=== PATIENT | female | born 1935 | race Caucasian/White ===

== ENCOUNTER 2017-03-22 11:49 | Inpatient (IN) ==
[2017-03-22] MEDS ORDERED: SODIUM CHLORIDE 500 ML IV STA (12:14)
[2017-03-22] MEDS ORDERED: ZOFRAN 4 MG/2 ML IVP PRN (12:18)
--- NOTE | 2017-03-22 12:26 | ED.PDOC ---
General ED Provider: Dr. MAN BELL Chief Complaint: Respiratory Complaint Stated Complaint: Shortness of breath;Was recently discharged from [facility] after treatment for CHF. Came home on Sunday and has felt bad ever since then, becoming increasingly short of breath. Was referred to hospital by her PCP for rapid HR (afib). Discharge meds reviewed. Time Seen by Physician: 12:15 Mode of Arrival: Wheelchair Information Source: Patient, Family Exam Limitations: Clinical condition, Dementia Primary Care Provider: SHARMIN DÍAZ Nursing and Triage Documentation Reviewed and Agree: Yes Reviewed sepsis parameters & appropriate labs ordered?: Yes System Inflammatory Response Syndrome: Pulse >90 BPM, Resp >20/Minute Sepsis Protocol: For patient's 13 years and over: Temp is 96.8 and below OR 101 and greater Pulse >90 BPM Resp >20/minute Acutely Altered Mental Status Are patient's symptoms suggestive of a new infection, such as: -Pneumonia -Skin, Soft Tissue -Endocarditis -UTI -Bone, Joint Infection -Implantable Device -Acute Abdominal Infection -Wound Infection -Meningitis -Blood Stream Catheter Infection -Unknown System Inflammatory Response Syndrome: Not Applicable Respiratory Complaint Exam - Shortness of Air Complaint/Exam Symptoms Are: Worse Timing: Constant Initial Severity: Moderate Current Severity: Moderate Character: Reports: Dyspnea at rest, Dyspnea on exertion, Orthopnea Aggravating: Reports: Movement, Recumbent position Alleviating: Reports: Oxygen Associated Signs and Symptoms: Reports: Cough, Wheezing, Rapid breathing, Labored breathing Related History: Reports: Similar episode History of Healthcare-Acquired Pneumonia: No Pulmonary Embolism Risk Factors: Reports: Bedrest Pseudomonas Risk Factors: Reports: None Tuberculosis Risk Factors: Reports: None Home Oxygen Use: No Recent Stress Test: No Respiratory Distress: Mild Stridor Present: No Tracheal Deviation: No Subcutaneous Emphysema: No Accessory Muscle Use: No Diminished Breath Sounds: Yes Prolonged Expiratory Phase: Yes Unable to Speak Full Sentences: Yes Fatigue: Yes Leg Swelling: No Kevin's Sign Present: No Grunting Respirations: Yes Kussmaul Respirations: No Differential Diagnoses: CHF, Pulmonary Edema, Pneumonia (R/O [facility] care associated Pneumonia) Review of Systems - Review Of Systems Constitutional: Reports: Weakness, Loss of appetite Eyes: Reports: No symptoms Ears, Nose, Mouth, Throat: Reports: No symptoms Respiratory: Reports: Short of air Cardiac: Reports: Edema, Irregular heart rate, Palpitations GI: Reports: No symptoms, Rectal bleeding (hemorrhoid) : Reports: Other (recent burning and tx for uti) Musculoskeletal: Reports: No symptoms Skin: Reports: Other (palorous) Neurological: Reports: Cognitive dysfunction Endocrine: Reports: No symptoms Hematologic/Lymphatic: Reports: No symptoms All Other Systems: Reviewed and Negative Past Medical History - Past Medical History Endocrine: Reports: None Cardiovascular: Reports: CHF, A-Fib Respiratory: Reports: Unknown Hematological: Reports: Anemia Gastrointestinal: Reports: Other (Hemorrhoidal related rectal bleeding) Genitourinary: Reports: UTI Neuro/Psych: Reports: Dementia Musculoskeletal: Reports: None Cancer: Reports: None Last Menstrual Period: unknown - Surgical History General Surgical History: Reports: None - Family History Family History: Reports: Hypertension - Social History Smoking Status: Never smoker Hx Substance Use: No Alcohol Screening: None Physical Exam - Physical Exam Appearance: Ill-appearing, Thin Ill-appearing: Moderate Pain Distress: None Eyes: LEA, EOMI, Conjunctiva clear, Conjunctiva inflammed ENT: Ears normal Neck: Supple Respiratory: Breath sounds equal, Breath sounds diminished, Crackles Cardiovascular: Irregular rhythm GI/: Soft, Nontender, No masses Musculoskeletal: Normal strength, ROM intact, No edema, No calf tenderness Skin: Warm, Dry, Pale Neurological: Sensation intact, Motor intact, Reflexes intact, Alert, Disoriented Psychiatric: Affect appropriate, Mood appropriate Critical Care Note - Critical Care Note Total Time (mins): 1 Course - Course Hematology/Chemistry: 03/27/17 04:50 03/27/17 04:50 Orders, Labs, Meds: Lab Review 03/22/17 03/22/17 03/22/17 12:00 12:40 12:40 WBC 6.27 RBC 4.85 Hgb 12.2 Hct 40.0 MCV 82.5 MCH 25.2 L MCHC 30.5 L RDW Coeff of Ramiro 22.8 H Plt Count 224 Immature Gran % (Auto) 0.3 Neut % (Auto) 77.5 Lymph % (Auto) 9.1 L [place] % (Auto) 12.6 H Eos % (Auto) 0.0 Baso % (Auto) 0.5 Immature Gran # (Auto) 0.0 Neut # 4.9 Lymph # 0.6 [place] # 0.8 Eos # 0.0 Baso # 0.0 Puncture Site R rad O2 Saturation 90.0 L ABG pH 7.519 H* ABG pCO2 38.9 ABG pO2 52.0 L* ABG HCO3 31.7 H ABG Total CO2 33 H ABG Base Excess 9 H Yung Test + FiO2 % 21.0 Sodium 142 Potassium 3.7 Chloride 99 Carbon Dioxide 32 H Anion Gap 14.7 BUN 22 H Creatinine 0.91 Estimated GFR (MDRD) 59.00 BUN/Creatinine Ratio 24.17 Glucose 110 Lactic Acid Calcium 9.5 Total Bilirubin 1.3 H AST 20 ALT 25 Alkaline Phosphatase 72 Troponin I B-Natriuretic Peptide Total Protein 6.6 Albumin 3.4 Globulin 3.2 Albumin/Globulin Ratio 1.06 Procalcitonin Urine Color Urine Clarity Urine pH Ur Specific [place] Urine Protein Urine Glucose (UA) Urine Ketones Urine Blood Urine Nitrite Urine Bilirubin Urine Urobilinogen Ur Leukocyte Esterase Urine Microscopic WBC Ur Squamous Epith Cells Hyaline Casts Urine Mucus Blood Type Antibody Screen 03/22/17 03/22/17 03/22/17 12:40 12:40 12:40 WBC RBC Hgb Hct MCV MCH MCHC RDW Coeff of Ramiro Plt Count Immature Gran % (Auto) Neut % (Auto) Lymph % (Auto) [place] % (Auto) Eos % (Auto) Baso % (Auto) Immature Gran # (Auto) Neut # Lymph # [place] # Eos # Baso # Puncture Site O2 Saturation ABG pH ABG pCO2 ABG pO2 ABG HCO3 ABG Total CO2 ABG Base Excess Yung Test FiO2 % Sodium Potassium Chloride Carbon Dioxide Anion Gap BUN Creatinine Estimated GFR (MDRD) BUN/Creatinine Ratio Glucose Lactic Acid 17.1 Calcium Total Bilirubin AST ALT Alkaline Phosphatase Troponin I 0.0680 B-Natriuretic Peptide Total Protein Albumin Globulin Albumin/Globulin Ratio Procalcitonin < 0.05 Urine Color Urine Clarity Urine pH Ur Specific [place] Urine Protein Urine Glucose (UA) Urine Ketones Urine Blood Urine Nitrite Urine Bilirubin Urine Urobilinogen Ur Leukocyte Esterase Urine Microscopic WBC Ur Squamous Epith Cells Hyaline Casts Urine Mucus Blood Type Antibody Screen 03/22/17 03/22/17 03/22/17 13:10 13:10 15:50 WBC RBC Hgb Hct MCV MCH MCHC RDW Coeff of Ramiro Plt Count Immature Gran % (Auto) Neut % (Auto) Lymph % (Auto) [place] % (Auto) Eos % (Auto) Baso % (Auto) Immature Gran # (Auto) Neut # Lymph # [place] # Eos # Baso # Puncture Site O2 Saturation ABG pH ABG pCO2 ABG pO2 ABG HCO3 ABG Total CO2 ABG Base Excess Yung Test FiO2 % Sodium Potassium Chloride Carbon Dioxide Anion Gap BUN Creatinine Estimated GFR (MDRD) BUN/Creatinine Ratio Glucose Lactic Acid Calcium Total Bilirubin AST ALT Alkaline Phosphatase Troponin I B-Natriuretic Peptide 2570 H Total Protein Albumin Globulin Albumin/Globulin Ratio Procalcitonin Urine Color Yellow Urine Clarity Clear Urine pH 6.0 Ur Specific [place] 1.025 Urine Protein 2+ Urine Glucose (UA) Negative Urine Ketones Trace Urine Blood Negative Urine Nitrite Negative Urine Bilirubin 1+ Urine Urobilinogen 1.0 Ur Leukocyte Esterase Negative Urine Microscopic WBC 0-2 Ur Squamous Epith Cells 2-5 Hyaline Casts 0-2 Urine Mucus 1+ Blood Type A NEGATIVE Antibody Screen Negative Orders Category Date Time Status ADMIT PATIENT INPATIENT .TO [facility] [place] (MONITORED BED) ADMISSION 03/22/17 16: 59 Active ABG DRAW REQUEST Stat CARDIO 03/22/17 12:27 Completed EKG-(ED ONLY) Stat CARDIO 03/22/17 12:14 Completed TELEMETRY MONITORING TELE CARE 03/22/17 17:04 Inactive OXYGEN [ED APPLY O2] .ONCE EMERGENCY 03/22/17 12:17 Active ABG Stat LAB 03/22/17 12:00 Completed BLOOD CULTURE (ED ONLY) Stat LAB 03/22/17 13:10 Completed BNP [B-TYPE NATRIURETIC PEPTIDE] Stat LAB 03/22/17 13:10 Completed CBC W/ AUTO DIFF Stat LAB 03/22/17 12:40 Completed CMP [COMPREHENSIVE METABOLIC PANEL] Stat LAB 03/22/17 12:40 Completed LACTIC ACID Stat LAB 03/22/17 12:40 Completed PROCALCITONIN Stat LAB 03/22/17 12:40 Completed TROPONIN I Stat LAB 03/22/17 12:40 Completed TYPE AND SCREEN Stat LAB 03/22/17 13:10 Completed UA [URINALYSIS C & S IF INDICATED] Stat LAB 03/22/17 15:50 Completed Dexamethasone 4 mg/ml Inj [Decadron 4 mg/ml Sdv] MEDS 03/22/17 17:13 Discontinued 4 mg IM ONCE STA Digoxin Inj [Lanoxin] MEDS 03/22/17 17:06 Discontinued 250 mcg IVP ONCE STA Furosemide [Lasix] MEDS 03/22/17 17:05 Discontinued 20 mg IVP ONCE STA Ondansetron HCl/Pf [Zofran 4 mg/2 ml] MEDS 03/22/17 12:18 Discontinued 4 mg IVP Q6H PRN Sodium Chloride 0.9% [Sodium Chloride] 500 ml MEDS 03/22/17 12:14 Discontinued IV 80 mls/hr CHEST, 1V AP ONLY Stat RADS 03/22/17 12:14 Completed Medications Discontinued Medications Generic Name Dose Route Start Last Admin Trade Name Freq PRN Reason Stop Dose Admin Acetaminophen 650 mg 03/22/17 20:39 Tylenol PO Q4H PRN Headache Alprazolam 0.25 mg 03/22/17 21:00 03/26/17 21:12 Xanax PO 0.25 mg BEDTIME BECCA Administration Aspirin 81 mg 03/23/17 08:00 03/27/17 09:47 Aspirin Ec PO 81 mg DAILYWM BECCA Administration Atropine Sulfate 0.5 mg 03/22/17 20:39 Atropine Sulfate Pfs IVP ONCE PRN Symptomatic Bradycardia Calcium/Vitamin D 1 each 03/23/17 09:00 03/27/17 09:46 Calcium 500 + Vit D 200 Mg Tablet PO 1 each BID BECCA Administration Dexamethasone Sodium Phosphate 4 mg 03/22/17 17:13 03/22/17 17:38 Decadron 4 Mg/Ml Sdv IM 03/22/17 17:14 4 mg ONCE STA Administration Dexamethasone Sodium Phosphate 4 mg 03/23/17 09:00 03/23/17 09:40 Decadron 4 Mg/Ml Sdv IM 03/23/17 09:01 4 mg ONCE ONE Administration Digoxin 250 mcg 03/22/17 17:06 03/22/17 17:48 Lanoxin IVP 03/22/17 17:07 250 mcg ONCE STA Administration Furosemide 20 mg 03/22/17 17:05 03/22/17 17:35 Lasix IVP 03/22/17 17:06 20 mg ONCE STA Administration Furosemide 40 mg 03/23/17 09:00 Lasix Tab PO DAILY BECCA Furosemide 40 mg 03/23/17 06:30 03/27/17 05:46 Lasix Tab PO 40 mg QDAC BECCA Administration Gabapentin 300 mg 03/22/17 21:00 03/26/17 21:12 Neurontin PO 300 mg BEDTIME BECCA Administration Haloperidol Lactate 1 mg 03/25/17 12:09 03/25/17 13:00 Haldol IM 1 mg Q8H PRN Administration behavioral issues/agitation Hydroxyzine HCl 25 mg 03/22/17 20:39 03/26/17 03:13 Vistaril Inj IM 25 mg Q4H PRN Administration Nausea/Vomiting/Restlessness Sodium Chloride 500 mls @ 80 mls/hr 03/22/17 12:14 03/22/17 12:28 Sodium Chloride IV 03/22/17 18:28 80 mls/hr .Q6H15M STA Administration Levalbuterol HCl 1 vial 03/23/17 12:00 03/27/17 11:15 Xopenex 1.25 Mg NEB 1 vial RTQ6H BECCA Administration Magnesium Hydroxide 30 ml 03/25/17 21:00 03/27/17 09:47 Milk Of Magnesia PO 30 ml DAILY BECCA Administration Metoprolol Tartrate 50 mg 03/22/17 21:00 03/22/17 21:22 Lopressor PO 50 mg BID BECCA Administration Metoprolol Tartrate 50 mg 03/23/17 08:00 03/27/17 09:47 Lopressor PO 50 mg BIDWM BECCA Administration Morphine Sulfate 4 mg 03/22/17 20:39 Morphine 4 Mg/Ml Vial IVP Q6H PRN Severe Pain Nitroglycerin 0.4 mg 03/22/17 20:38 Nitrostat SL Q5MIN X 3 DOSES PRN Chest Pain Non-Formulary Medication 1 drop 03/22/17 21:00 03/22/17 21:25 Brimonidine Tartrate [Alphagan P] OP Not Given BID [facility] Non-Formulary Medication 1 each 03/22/17 21:00 03/22/17 21:25 Calcium Carbonate/Vitamin D3 [Calcium 600 + Vit D 400 Tablet] PO Not Given BID BECCA Non-Formulary Medication 1 each 03/22/17 21:00 03/22/17 21:25 Cyclosporine OP Not Given BID BECCA Non-Formulary Medication 20 mg 03/22/17 21:00 03/22/17 21:26 Rivaroxaban [Xarelto] PO Not Given BEDTIME BECCA Non-Formulary Medication 1 each 03/23/17 09:00 03/26/17 21:13 Cyclosporine OP Not Given BID [facility] Non-Formulary Medication 1 drop 03/23/17 09:00 03/27/17 09:00 Brimonidine Tartrate [Alphagan P] OP Not Given BID BECCA Ondansetron HCl 4 mg 03/22/17 12:18 03/22/17 14:57 Zofran 4 Mg/2 Ml IVP 4 mg Q6H PRN Administration Nausea / Vomiting Potassium Chloride 20 meq 03/23/17 08:00 03/27/17 09:46 K-Dur PO 20 meq DAILYWM BECCA Administration Pravastatin Sodium 40 mg 03/22/17 21:00 03/26/17 21:12 Pravachol PO 40 mg BEDTIME BECCA Administration Rivaroxaban 20 mg 03/23/17 21:00 03/26/17 21:13 Xarelto PO 20 mg BEDTIME BECCA Administration Sodium Chloride 1 syr 03/22/17 21:00 03/26/17 14:40 Saline Flush IVF Not Given Q8HR BECCA Vital Signs: Temp Pulse Resp BP Pulse Ox 03/22/17 11:50 98.1 F 109 H 22 114/70 86 L Departure - Departure Time of Disposition: 17:10 Disposition: ADMITTED INPATIENT Discharge Problem: Atrial fibrillation, Congestive heart failure Condition: Fair Pt referred to PMD for follow-up: Yes (Nitin when discharged) IPMP verified?: No (N/I) Allergies/Adverse Reactions: Allergies No Known Allergies Allergy (Unverified 03/22/17 12:04) Home Medications: Ambulatory Orders Acetaminophen [Tylenol] 500 mg PO Q6H PRN 03/22/17 Brimonidine Tartrate [Alphagan P] 1 drop OP BID 03/22/17 Calcium Carbonate/Vitamin D3 [Calcium 600 + Vit D 400 Tablet] 1 each PO BID 03/08 Cyclosporine [Restasis] 1 each OP BID 03/22/17 Furosemide 40 mg PO DAILY 03/22/17 Gabapentin 300 mg PO BEDTIME 03/22/17 Metoprolol Tartrate 50 mg PO BID 03/22/17 Nitroglycerin [Nitrostat] 0.4 mg SL Q5MIN X 3 DOSES PRN 03/22/17 Potassium Chloride 20 meq PO DAILY 03/22/17 Pravastatin Sodium [Pravachol] 40 mg PO BEDTIME 03/22/17 Rivaroxaban [Xarelto] 20 mg PO BEDTIME 03/22/17 Disposition Discussed With: Patient (Discussed with Dr Henderson who agrees with admission )
--- NOTE | 2017-03-22 13:09 | DI ---
EXAM: Single view of the chest. History: Dyspnea. Comparison: Chest radiograph 09/13/2010 Findings: Heart is enlarged. No focal consolidation. No appreciable pleural fluid and no pneumotho rax. No acute osseous abnormalities. Impression: Cardiomegaly without evidence for heart failure
[2017-03-22] MEDS ORDERED: LASIX IVP STA (17:05)
[2017-03-22] MEDS ORDERED: LANOXIN IVP STA (17:06)
[2017-03-22] MEDS ORDERED: DECADRON 4 MG/ML SDV IVP STA (17:06)
[2017-03-22] MEDS ORDERED: XANAX PO STA ×2 (17:11→17:20)
[2017-03-22] MEDS ORDERED: DECADRON 4 MG/ML SDV IM STA (17:13)
[2017-03-22 19:06] VITALS: BMI 24.4
[2017-03-22] MEDS ORDERED: TYLENOL PO PRN ×2 (20:35→20:39)
[2017-03-22] MEDS ORDERED: NITROSTAT SL PRN ×2 (20:38→20:39)
[2017-03-22] MEDS ORDERED: MORPHINE 4 MG/ML VIAL IVP PRN (20:39)
[2017-03-22] MEDS ORDERED: ATROPINE SULFATE PFS IVP PRN (20:39)
[2017-03-22] MEDS ORDERED: NON-FORMULARY MEDICATION (Cyclosporine 1 EACH) OP SCH (21:00)
[2017-03-22] MEDS ORDERED: BRIMONIDINE TARTRATE OP SCH (21:00)
[2017-03-22] MEDS ORDERED: NON-FORMULARY MEDICATION (Rivaroxaban [Xarelto] 20 MG) PO SCH (21:00)
[2017-03-22] MEDS ORDERED: LOPRESSOR PO SCH (21:00)
[2017-03-22] MEDS ORDERED: XARELTO ONE (21:12)
[2017-03-22] MEDS: XANAX PO SCH (21:22)
[2017-03-22] MEDS: NEURONTIN PO SCH (21:22)
[2017-03-22] MEDS: PRAVACHOL PO SCH (21:23)
[2017-03-23] MEDS: LASIX TAB PO SCH (05:35)
[2017-03-23] MEDS: LOPRESSOR PO SCH ×2 (08:34→16:53)
[2017-03-23] MEDS: CALCIUM 500 + VIT D 200 MG TABLET PO SCH ×2 (08:34→20:39)
[2017-03-23] MEDS: ASPIRIN EC PO SCH (08:34)
[2017-03-23] MEDS: NON-FORMULARY MEDICATION (Cyclosporine 1 EACH) OP SCH ×2 (08:35→20:40)
[2017-03-23] MEDS: K-DUR PO SCH (08:35)
[2017-03-23] MEDS: BRIMONIDINE TARTRATE OP SCH ×2 (08:36→20:40)
[2017-03-23] MEDS ORDERED: NON-FORMULARY MEDICATION (Potassium Chloride [Potassium Chloride] 20 MEQ) PO SCH (09:00)
[2017-03-23] MEDS ORDERED: LASIX TAB PO SCH (09:00)
[2017-03-23] MEDS ORDERED: DECADRON 4 MG/ML SDV IM ONE (09:00)
--- NOTE | 2017-03-23 09:59 | PCM.PROG ---
Attending Provider: ATTENDING PROVIDER: [facility] DATE OF SERVICE: 03/23/17 SUBJECTIVE: This 81 year old WHITE/ F was hospitalized 03/22/17 hospitalized with CHF, atrial fibrillation, rapid ventricular response and shortness of breath. Condition has improved. She seems to be more alert, still seems confused. Her color looks better. REVIEW OF SYSTEMS: CONSTITUTIONAL: No night sweats. No fatigue, malaise, lethargy. No fever or chills. HEENT: Eyes: No visual changes. No eye pain. No eye discharge. ENT: No runny nose. No epistaxis. No sinus pain. No odynophagia. No congestion. RESPIRATORY: No cough, no congestion. No hemoptysis. No shortness of breath. CARDIOVASCULAR: No angina symptoms. No CHF symptoms. No atypical chest pain for CAD. No palpitations. No orthopnea.. GASTROINTESTINAL: No abdominal pain. No nausea or vomiting. No diarrhea or constipation. No hematemesis. No hematochezia. GENITOURINARY: No urgency. No frequency. No dysuria. No hematuria. No obstructive symptoms. No discharge. No pain. No significant abnormal bleeding. MUSCULOSKELETAL: No musculoskeletal pain; no joint swelling. NEUROLOGICAL: Awake, alert, oriented to person with some confusion. No headache. No neck pain. No syncope. No seizures. No dizziness. PSYCHIATRIC: Not anxious. No depression. No suicidal thoughts. No homicidal thoughts. SKIN: No rash. No lesions. No wounds. ENDOCRINE: No unexplained weight loss. No weight gain. HEMATOLOGIC/LYMPHATIC: No anemia. No purpura. No petechiae. No prolonged or excessive bleeding. No palpable lymph nodes. PHYSICAL EXAMINATION: GENERAL: The patient is awake, alert; however, confused sitting in bed in no distress. VITAL SIGNS: Temperature 96.2 F, Pulse 87, Respiratory Rate 20, BP 136/90, Pulse Ox 99% HEENT: Head normocephalic, atraumatic. Eyes: Extraocular muscles are intact. Pupils are equal, round and reactive to light and accommodation. Ears: No lesions. Nose appeared normal. Throat: No exudate or erythema. NECK: Supple. No JVD, no carotid bruit. No lymphadenopathy or thyromegaly. LUNGS: Decreased breath sounds. Clear to auscultation. Percussion note normal. Chest symmetrical. HEART: S1, S2, no S3. No murmurs. No cyanosis or clubbing. No ascites. Pulses: Dorsalis pedis and posterior tibial pulses +1 to +2 both sides. ABDOMEN: Soft. Non-tender. Bowel sounds active. No CVA tenderness. No mass felt. EXTREMITIES: Trace edema. Full range of motion of all extremities, equal. NEUROLOGIC: No focal deficit. Cranial nerves II through XII are grossly intact. No headache, no double vision or headache. SKIN: Warm and dry. Intact. Turgor-normal. LYMPHATIC: No palpable lymph nodes/no lymphedema. MUSCULOSKELETAL: Normal joints with no swelling. Muscle tone is normal. LAB REVIEW: 03/23/17 04:42 03/23/17 04:42 03/23/17 04:42: Sodium 140, Potassium 3.8, Chloride 100, Carbon Dioxide 28, Anion Gap 15.8, BUN 23 H, Creatinine 0.78, Estimated GFR (MDRD) 71.00, BUN/ Creatinine Ratio 29.48, Glucose 129 H, Calcium 8.7, Total Bilirubin 1.1, AST 24 , ALT 25, Alkaline Phosphatase 64, Total Protein 5.8, Albumin 3.1 L, Globulin 2.7, Albumin/Globulin Ratio 1.15 03/23/17 04:42: WBC 4.10 L, RBC 4.59, Hgb 11.6 L, Hct 37.7, MCV 82.1, MCH 25.3 L , MCHC 30.8 L, RDW Coeff of Ramiro 22.1 H, Plt Count 175, Immature Gran % (Auto) 0.2, Neut % (Auto) 80.8, Lymph % (Auto) 10.5, [place] % (Auto) 8.3, Eos % (Auto) 0.0, Baso % (Auto) 0.2, Immature Gran # (Auto) 0.0, Neut # 3.3, Lymph # 0.4 L, [place] # 0.3 L, Eos # 0.0, Baso # 0.0 03/23/17 04:42: Total Creatine Kinase 56, Troponin I 0.0430 03/23/17 00:10: Urine Color Yellow, Urine Clarity Clear, Urine pH 7.0, Ur Specific [place] 1.020, Urine Protein Trace, Urine Glucose (UA) Negative, Urine Ketones Negative, Urine Blood Trace-lysed, Urine Nitrite Negative, Urine Bilirubin Negative, Urine Urobilinogen 0.2, Ur Leukocyte Esterase Negative, Urine Microscopic RBC 0-2, Urine Microscopic WBC 0-2, Ur Squamous Epith Cells 5- 10, Urine Bacteria Trace, Urine Mucus Trace 03/22/17 21:01: TSH 1.838 03/22/17 21:01: Total Creatine Kinase 54, Troponin I 0.0670 03/22/17 21:01: Sodium 140, Potassium 3.8, Chloride 100, Carbon Dioxide 31, Anion Gap 12.8, BUN 22 H, Creatinine 0.85, Estimated GFR (MDRD) 64.00, BUN/ Creatinine Ratio 25.88, Glucose 128 H, Calcium 8.9, Total Bilirubin 1.2, AST 21 , ALT 26, Alkaline Phosphatase 68, Total Protein 6.2, Albumin 3.3 L, Globulin 2.9, Albumin/Globulin Ratio 1.14 03/22/17 21:01: WBC 5.78, RBC 4.72, Hgb 12.0, Hct 38.8, MCV 82.2, MCH 25.4 L, MCHC 30.9 L, RDW Coeff of Ramiro 22.2 H, Plt Count 194, Immature Gran % (Auto) 0.5 , Neut % (Auto) 83.2, Lymph % (Auto) 7.3 L, [place] % (Auto) 8.7, Eos % (Auto) 0.0 , Baso % (Auto) 0.3, Immature Gran # (Auto) 0.0, Neut # 4.8, Lymph # 0.4 L, [place] # 0.5, Eos # 0.0, Baso # 0.0 ASSESSMENT: 1. Congestive heart failure. 2. Atrial fibrillation with rapid ventricular response. 3. COPD with chronic bronchitis. 4. Dementia. 5. Hypertension. 6. Anemia. 7. Generalized osteoarthritis. PLAN: 1. Continue all medicines. 2. Continue p.o. Lasix 40 mg daily. 3. Echocardiogram to evaluate valvular status because of atrial fibrillation and LV function with LA size. 4. CHADS2 VASC score because including her gender is more than 5. 5. Decadron 1 cc daily in the morning. 6. ABG on room air. 7. Xopenex q.6hr. Plan and coordination of the patient's care discussed in the presence of Tractor Trailer Mechanic and nurse. CONDITION: Stable SCRIBED BY: MALINDA DELUCA, It Manager scribed while in presence of service performed by Dr. [facility]AE [facility] on 03/23/17 ([id number])
[2017-03-23] MEDS: XOPENEX 1.25 MG NEB SCH ×3 (11:13→23:55)
[2017-03-23] MEDS: XARELTO PO SCH (20:38)
[2017-03-23] MEDS: PRAVACHOL PO SCH (20:38)
[2017-03-23] MEDS: XANAX PO SCH (20:38)
[2017-03-23] MEDS: NEURONTIN PO SCH (20:39)
[2017-03-24] MEDS: XOPENEX 1.25 MG NEB SCH ×4 (05:30→23:20)
[2017-03-24] MEDS: LASIX TAB PO SCH (05:44)
[2017-03-24] MEDS: K-DUR PO SCH (08:24)
[2017-03-24] MEDS: CALCIUM 500 + VIT D 200 MG TABLET PO SCH ×2 (08:24→20:49)
[2017-03-24] MEDS: ASPIRIN EC PO SCH (08:25)
[2017-03-24] MEDS: LOPRESSOR PO SCH ×2 (08:25→16:38)
[2017-03-24] MEDS: NON-FORMULARY MEDICATION (Cyclosporine 1 EACH) OP SCH ×2 (08:26→20:50)
[2017-03-24] MEDS: BRIMONIDINE TARTRATE OP SCH ×2 (08:26→20:50)
[2017-03-24] MEDS: XARELTO PO SCH (20:49)
[2017-03-24] MEDS: XANAX PO SCH (20:49)
[2017-03-24] MEDS: NEURONTIN PO SCH (20:50)
[2017-03-24] MEDS: PRAVACHOL PO SCH (20:50)
[2017-03-25] MEDS: VISTARIL INJ IM PRN ×2 (03:21→12:59)
[2017-03-25] MEDS: XOPENEX 1.25 MG NEB SCH ×4 (05:10→22:47)
[2017-03-25] MEDS: LASIX TAB PO SCH (05:41)
[2017-03-25] MEDS: ASPIRIN EC PO SCH (09:17)
[2017-03-25] MEDS: NON-FORMULARY MEDICATION (Cyclosporine 1 EACH) OP SCH ×2 (09:17→20:23)
[2017-03-25] MEDS: CALCIUM 500 + VIT D 200 MG TABLET PO SCH ×2 (09:17→20:23)
[2017-03-25] MEDS: K-DUR PO SCH (09:17)
[2017-03-25] MEDS: LOPRESSOR PO SCH ×2 (09:17→17:17)
[2017-03-25] MEDS: BRIMONIDINE TARTRATE OP SCH ×2 (09:18→20:22)
[2017-03-25] MEDS ORDERED: HALDOL IM PRN (12:09)
[2017-03-25] MEDS: NEURONTIN PO SCH (20:23)
[2017-03-25] MEDS: MILK OF MAGNESIA PO SCH (20:23)
[2017-03-25] MEDS: XARELTO PO SCH (20:24)
[2017-03-25] MEDS: PRAVACHOL PO SCH (20:24)
[2017-03-25] MEDS: XANAX PO SCH (20:24)
[2017-03-26] MEDS: VISTARIL INJ IM PRN (03:13)
[2017-03-26] MEDS: XOPENEX 1.25 MG NEB SCH ×3 (05:00→17:51)
[2017-03-26] MEDS: LASIX TAB PO SCH (05:36)
[2017-03-26] MEDS: CALCIUM 500 + VIT D 200 MG TABLET PO SCH ×2 (08:40→21:13)
[2017-03-26] MEDS: ASPIRIN EC PO SCH (08:40)
[2017-03-26] MEDS: LOPRESSOR PO SCH ×2 (08:40→17:51)
[2017-03-26] MEDS: MILK OF MAGNESIA PO SCH (08:40)
[2017-03-26] MEDS: K-DUR PO SCH (08:40)
[2017-03-26] MEDS: BRIMONIDINE TARTRATE OP SCH ×2 (08:41→21:13)
[2017-03-26] MEDS: NON-FORMULARY MEDICATION (Cyclosporine 1 EACH) OP SCH ×2 (08:41→21:13)
[2017-03-26] MEDS: NEURONTIN PO SCH (21:12)
[2017-03-26] MEDS: PRAVACHOL PO SCH (21:12)
[2017-03-26] MEDS: XANAX PO SCH (21:12)
[2017-03-26] MEDS: XARELTO PO SCH (21:13)
[2017-03-27] MEDS: XOPENEX 1.25 MG NEB SCH ×3 (00:45→11:15)
[2017-03-27] MEDS: LASIX TAB PO SCH (05:46)
[2017-03-27] MEDS: BRIMONIDINE TARTRATE OP SCH (09:00)
[2017-03-27] MEDS: CALCIUM 500 + VIT D 200 MG TABLET PO SCH (09:46)
[2017-03-27] MEDS: K-DUR PO SCH (09:46)
[2017-03-27] MEDS: MILK OF MAGNESIA PO SCH (09:47)
[2017-03-27] MEDS: LOPRESSOR PO SCH (09:47)
[2017-03-27] MEDS: ASPIRIN EC PO SCH (09:47)
[2017-03-27 10:36] VITALS: BP 111/69; TEMP 97.7
--- NOTE | 2017-03-27 10:36 | HP ---
ATE OF SERVICE: 03/22/17 REASON FOR HOSPITALIZATION: Weakness and Cough HISTORY OF PRESENT ILLNESS: 81 year old white female presented to the emergency room with shortness of breath and recent onset of atrial fibrillation. The patient is having increasing weakness. Primary care provider Dr. Taveras, who is out of town. The patient was recently hospitalized at [facility] for treatment of CHF. PAST MEDICAL HISTORY/PAST SURGICAL HISTORY: Atrial fibrillation Dementia Dyslipidemia Hypertension Generalized osteoarthritis REVIEW OF SYSTEMS: The was unable to give any significant history CONSTITUTIONAL: No night sweats. Fatigue and weakness. No fever or chills. HEENT: Eyes: No visual changes. No eye pain. No eye discharge. ENT: No runny nose. No epistaxis. No sinus pain. No sore throat. No odynophagia. No ear pain. No congestion. RESPIRATORY: Mild cough, no congestion. No hemoptysis. No shortness of breath. CARDIOVASCULAR: No angina symptoms. No CHF symptoms. No atypical chest pain for CAD. No palpitations. No orthopnea. No PND. GASTROINTESTINAL: No abdominal pain. No nausea or vomiting. No diarrhea or constipation. No hematemesis. No hematochezia. GENITOURINARY: No urgency. No frequency. No dysuria. No hematuria. No obstructive symptoms. No discharge. No pain. No significant abnormal bleeding. MUSCULOSKELETAL: No musculoskeletal pain. No joint swelling. No arthritis. NEUROLOGICAL: No headache. No neck pain. No syncope. No seizures. No dizziness. Neurological confusion, was not able to answer any questions. Mostly helped by the son. PSYCHIATRIC: Not anxious. No depression. No suicidal thoughts. No homicidal thoughts. SKIN: No rash. No lesions. No wounds. ENDOCRINE: No unexplained weight loss. No weight gain. HEMATOLOGIC/LYMPHATIC: No anemia. No purpura. No petechiae. No prolonged or excessive bleeding. No palpable lymph nodes. PERSONAL/FAMILY/SOCIAL HISTORY: The patient is . The was not present when I saw the patient in the ER. The son and was present. Non-smoker, no alcohol abuse. MEDICATIONS: Restasis Furosemide Gabapentin Metoprolol Nitroglycerin Potassium Pravastatin Xarelto ALLERGIES: None PHYSICAL EXAMINATION: GENERAL: The patient is confused sitting up in the bed. VITAL SIGNS: Temperature 97.4, pulse 112, blood pressure 134/89, respiratory rate 18 and pulse ox 94%. HEENT: Head normocephalic, atraumatic. Eyes: Extraocular muscles are intact. Pupils are equal, round and reactive to light and accommodation. Ears: No lesions. Nose appeared normal. Throat: No exudate or erythema. NECK: Supple. No JVD, no carotid bruit. No lymphadenopathy or thyromegaly. LUNGS: Decreased breath sounds but clear to auscultation. Percussion note normal. Chest symmetrical. HEART: S1, S2, no S3. No murmurs. No cyanosis or clubbing. No ascites. Pulses: Dorsalis pedis and posterior tibial pulses +1 to +2 both sides. ABDOMEN: Soft. Nontender. Bowel sounds active. No CVA tenderness. No mass felt. EXTREMITIES: Trace edema. Full range of motion of all extremities, equal. NEUROLOGIC: No focal deficit. Cranial nerves II through XII are grossly intact. No headache, no double vision or headache. GAIT: Walks with assistance SKIN: Not dry. Intact. Turgor - normal. LYMPHATIC: No palpable lymph nodes/no lymphedema. MUSCULOSKELETAL: Normal joints with no swelling. Muscle tone is normal. LABS: TSH 1.8 normal, hgb 12, hct 38, WBC 5,000 normal differential. ASSESSMENT: 1. Congestive heart failure 2. Atrial fibrillation with rapid ventricular response 3. COPD with chronic bronchitis 4. Dementia 5. Hypertension 6. Anemia 7. Generalized osteoarthritis PLAN: 1. Continue home medication 2. Digoxin IV 250mcg IV push once 3. Lasix IV 20mg IV push once 4. CBC and CMP 5. Elevate legs 6. Routine telemetry orders 7. Zofran 4mg IV Q 6 hours PRN TIME SPENT: More than 70 minutes. MTDD
--- NOTE | 2017-03-27 10:44 | PN ---
DATE OF SERVICE: 03/24/17 SUBJECTIVE: 81-year-old white female hospitalized with CHF, atrial fibrillation, dementia. The patient's condition is stable. Her breathing is alot better. Her oxygen saturation is 99% with 2L. REVIEW OF SYSTEMS: CONSTITUTIONAL: No night sweats. No fatigue, malaise, lethargy. No fever or chills. HEENT: Eyes: No visual changes. No eye pain. No eye discharge. ENT: No runny nose. No epistaxis. No sinus pain. No sore throat. No odynophagia. No congestion. RESPIRATORY: No cough, no congestion. No hemoptysis. No shortness of breath. CARDIOVASCULAR: No angina symptoms. No CHF symptoms. No atypical chest pain for CAD. No palpitations. No orthopnea. GASTROINTESTINAL: Appetite is improving. No abdominal pain. No nausea or vomiting. No diarrhea or constipation. No hematemesis. No hematochezia. GENITOURINARY: No urgency. No frequency. No dysuria. No hematuria. No obstructive symptoms. No discharge. No pain. No significant abnormal bleeding. MUSCULOSKELETAL: No musculoskeletal pain; no joint swelling. NEUROLOGICAL: She is confused but in no distress. No headache. No neck pain. No syncope. No seizures. No dizziness. PSYCHIATRIC: Not anxious. No depression. No suicidal thoughts. No homicidal thoughts. SKIN: No rash. No lesions. No wounds. ENDOCRINE: No unexplained weight loss. No weight gain. HEMATOLOGIC/LYMPHATIC: No anemia. No purpura. No petechiae. No prolonged or excessive bleeding. No palpable lymph nodes. PHYSICAL EXAMINATION: GENERAL: The patient seems to be oriented to place but not to person. She looks somewhat pale. VITAL SIGNS: Temperature 97.5, pulse 90, respiratory rate 20, BP 115/78. Pulse ox 99%. HEENT: Head normocephalic, atraumatic. Eyes: Extraocular muscles are intact. Pupils are equal, round and reactive to light and accommodation. Ears: No lesions. Nose appeared normal. Throat: No exudate or erythema. NECK: Supple. No JVD, no carotid bruit. No lymphadenopathy or thyromegaly. LUNGS: Decreased breath sounds with mild wheeze. Clear to auscultation. Percussion note normal. Chest symmetrical. HEART: S1, S2, no S3. No murmurs. No cyanosis or clubbing. No ascites. Pulses: Dorsalis pedis and posterior tibial pulses +1 to +2 both sides. ABDOMEN: Soft. Nontender. Bowel sounds active. No CVA tenderness. No mass felt. EXTREMITIES: No edema. Full range of motion of all extremities, equal. NEUROLOGIC: No focal deficit. Cranial nerves II through XII are grossly intact. No headache, no double vision or headache. SKIN: Not dry. Intact. Turgor - normal. LYMPHATIC: No palpable lymph nodes/no lymphedema. MUSCULOSKELETAL: Normal joints with no swelling. Muscle tone is normal. Echocardiogram was done which showed increased RV cavity size, LV contractility and ejection fraction seems to be normal. Enlarged LA cavity which is approximately more than 5 cm. LABS: Hemoglobin 11.9, hematocrit 39, WBC 6,300, normal differential. Creatinine 0.7, BUN 26, potassium 3.4. ASSESSMENT: 1. CHF SEEMS TO HAVE RESOLVED. 2. COPD, HYPOXEMIA UNDER CONTROL. 3. RESPIRATORY FAILURE SEEMS UNDER CONTROL. 4. ATRIAL FIBRILLATION WITH NORMAL VENTRICULAR RESPONSE. PLAN: 1. Continue IV Lasix. 2. Elevate the legs. 3. Encourage the patient to eat. 4. Continue nebs treatment. 5. Continue Xarelto, Pravachol, Metoprolol. CONDITION: Stable TIME SPENT: More than 30 minutes. Plan and coordination of the patient's care discussed in the presence of nurse. FREDRICK
--- NOTE | 2017-03-27 10:51 | PN ---
DATE OF SERVICE: 03/25/17 SUBJECTIVE: 81 year old white female hospitalized with CHF and atrial fibrillation. The patient's condition seems to have improved. She was very restless and had behavioral problems with her dementia yesterday. She was given Hydroxyzine with some response. We put her on Haldol 1mg IM Q 8 hours for abnormal behavior. Son is present in the room and he wants mother to go to the intermediate also the is in the hospital. REVIEW OF SYSTEMS: CONSTITUTIONAL: No night sweats. No fatigue, malaise, lethargy. No fever or chills. HEENT: Eyes: No visual changes. No eye pain. No eye discharge. ENT: No runny nose. No epistaxis. No sinus pain. No sore throat. No odynophagia. No congestion. RESPIRATORY: No cough, no congestion. No hemoptysis. No shortness of breath. CARDIOVASCULAR: No angina symptoms. No CHF symptoms. No atypical chest pain for CAD. No palpitations. No orthopnea. GASTROINTESTINAL: No abdominal pain. No nausea or vomiting. No diarrhea or constipation. No hematemesis. No hematochezia. GENITOURINARY: No urgency. No frequency. No dysuria. No hematuria. No obstructive symptoms. No discharge. No pain. No significant abnormal bleeding. MUSCULOSKELETAL: No musculoskeletal pain; no joint swelling. NEUROLOGICAL: No headache. No neck pain. No syncope. No seizures. No dizziness. PSYCHIATRIC: Not anxious. No depression. No suicidal thoughts. No homicidal thoughts. SKIN: No rash. No lesions. No wounds. ENDOCRINE: No unexplained weight loss. No weight gain. HEMATOLOGIC/LYMPHATIC: No anemia. No purpura. No petechiae. No prolonged or excessive bleeding. No palpable lymph nodes. PHYSICAL EXAMINATION: GENERAL: The patient is confused and alert. VITAL SIGNS: Temperature 97.1, pulse 80, respiratory rate 18, blood pressure 156/88 and pulse ox 96%. HEENT: Head normocephalic, atraumatic. Eyes: Extraocular muscles are intact. Pupils are equal, round and reactive to light and accommodation. Ears: No lesions. Nose appeared normal. Throat: No exudate or erythema. NECK: Supple. No JVD, no carotid bruit. No lymphadenopathy or thyromegaly. LUNGS: Decreased breath sounds but clear to auscultation. Percussion note normal. Chest symmetrical. HEART: S1, S2, no S3. No murmurs. No cyanosis or clubbing. No ascites. Pulses: Dorsalis pedis and posterior tibial pulses +1 to +2 both sides. ABDOMEN: Soft. Nontender. Bowel sounds active. No CVA tenderness. No mass felt. EXTREMITIES: No edema. Full range of motion of all extremities, equal. NEUROLOGIC: No focal deficit. Cranial nerves II through XII are grossly intact. No headache, no double vision or headache. SKIN: Not dry. Intact. Turgor - normal. LYMPHATIC: No palpable lymph nodes/no lymphedema. MUSCULOSKELETAL: Normal joints with no swelling. Muscle tone is normal. LABS: Hgb 13.2, hct 43, WBC 9,300 normal differential, creatinine 1, BUN 31, potassium 3.7 ASSESSMENT: 1. CHF resolved 2. Atrial fibrillation under control 3. Dementia PLAN: 1. Continue steroids intermittently 2. IV Lasix 3. Continue medicine for Dementia CONDITION: Stable TIME SPENT: More than 30 minutes. Plan and coordination of the patient's care discussed in the presence of nurse. FREDRICK
--- NOTE | 2017-03-27 10:53 | PN ---
DATE OF SERVICE: 03/26/17 SUBJECTIVE: 81-year-old white female hospitalized with CHF, atrial fibrillation. The patient 's condition is improved. Her BNP is a little bit better. She does not have any symptoms of CHF. She is alert but confused. REVIEW OF SYSTEMS: CONSTITUTIONAL: No night sweats. No fatigue, malaise, lethargy. No fever or chills. HEENT: Eyes: No visual changes. No eye pain. No eye discharge. ENT: No runny nose. No epistaxis. No sinus pain. No sore throat. No odynophagia. No congestion. RESPIRATORY: No cough, no congestion. No hemoptysis. No shortness of breath. CARDIOVASCULAR: No angina symptoms. No CHF symptoms. No atypical chest pain for CAD. No palpitations. No orthopnea. GASTROINTESTINAL: No abdominal pain. No nausea or vomiting. No diarrhea or constipation. No hematemesis. No hematochezia. GENITOURINARY: No urgency. No frequency. No dysuria. No hematuria. No obstructive symptoms. No discharge. No pain. No significant abnormal bleeding. MUSCULOSKELETAL: No musculoskeletal pain; no joint swelling. NEUROLOGICAL: No headache. No neck pain. No syncope. No seizures. No dizziness. PSYCHIATRIC: Not anxious. No depression. No suicidal thoughts. No homicidal thoughts. SKIN: No rash. No lesions. No wounds. ENDOCRINE: No unexplained weight loss. No weight gain. HEMATOLOGIC/LYMPHATIC: No anemia. No purpura. No petechiae. No prolonged or excessive bleeding. No palpable lymph nodes. PHYSICAL EXAMINATION: VITAL SIGNS: Temperature 97.5, pulse 90, respiratory rate 20, BP 115/78, pulse ox 99%. HEENT: Head normocephalic, atraumatic. Eyes: Extraocular muscles are intact. Pupils are equal, round and reactive to light and accommodation. Ears: No lesions. Nose appeared normal. Throat: No exudate or erythema. NECK: Supple. No JVD, no carotid bruit. No lymphadenopathy or thyromegaly. LUNGS: Decreased breath sounds but clear to auscultation. Percussion note normal. Chest symmetrical. HEART: S1, S2, no S3. No murmurs. No cyanosis or clubbing. No ascites. Pulses: Dorsalis pedis and posterior tibial pulses +1 to +2 both sides. ABDOMEN: Soft. Nontender. Bowel sounds active. No CVA tenderness. No mass felt. EXTREMITIES: Trace edema. Full range of motion of all extremities, equal. NEUROLOGIC: No focal deficit. Cranial nerves II through XII are grossly intact. No headache, no double vision or headache. SKIN: Not dry. Intact. Turgor - normal. LYMPHATIC: No palpable lymph nodes/no lymphedema. MUSCULOSKELETAL: Normal joints with no swelling. Muscle tone is normal. LABS: All stable with normal kidney function. ASSESSMENT: 1. CHF seems to be stable, resolved. 2. Atrial fibrillation under control. 3. Dementia under control. PLAN: 1. Continue the same treatment with IV Lasix. 2. Continue other antihypertensive medications. CONDITION: The patient's condition is stabilizing. TIME SPENT: More than 30 minutes. Plan and coordination of the patient's care discussed in the presence of nurse. FREDRICK
--- NOTE | 2017-03-27 11:09 | CM.DICTOOL ---
ADMISSION: 03/22/17 17:20 DISCHARGE: 2017 DATE OF SERVICE: 03/27/17 FINAL DIAGNOSIS Atrial fibrillation with RVR Congestive heart failure COPD with chronic bronchitis Hypertension Dementia Anemia Generalized Osteoarthritis Dyslipidemia TKR, Left Hemorrhoids LAST VITALS Temp Pulse Resp BP Pulse Ox 97.8 F 117 H 20 145/95 H 98 03/27/17 05:26 03/27/17 05:26 03/27/17 05:26 03/27/17 05:26 03/27/17 05:26 ACTIVE HOME MEDICATIONS Acetaminophen (Tylenol) 500 mg PO Q6H PRN PRN Reason: Headache Calcium/Vitamin D (Calcium 500 + Vit D 200 Mg Tablet) 1 each PO BID [facility] Last Admin: 03/27/17 09:46 Dose: 1 each Furosemide (Lasix Tab) 40 mg PO QDAC [facility] Last Admin: 03/27/17 05:46 Dose: 40 mg Gabapentin (Neurontin) 300 mg PO BEDTIME [facility] Last Admin: 03/26/17 21:12 Dose: 300 mg Metoprolol Tartrate (Lopressor) 50 mg PO BIDWM [facility] Last Admin: 03/27/17 09:47 Dose: 50 mg Nitroglycerin (Nitrostat) 0.4 mg SL Q5MIN X 3 DOSES PRN PRN Reason: Chest Pain Non-Formulary Medication (Cyclosporine) 1 each OP BID [facility] Last Admin: 03/26/17 21:13 Dose: Not Given Non-Formulary Medication (Brimonidine Tartrate [Alphagan P]) 1 drop OP BID [facility] Last Admin: 03/26/17 21:13 Dose: Not Given Potassium Chloride (K-Dur) 20 meq PO DAILYWM [facility] Last Admin: 03/27/17 09:46 Dose: 20 meq Pravastatin Sodium (Pravachol) 40 mg PO BEDTIME [facility] Last Admin: 03/26/17 21:12 Dose: 40 mg Rivaroxaban (Xarelto) 20 mg PO BEDTIME [facility] Last Admin: 03/26/17 21:13 Dose: 20 mg ALLERGIES No Known Allergies Allergy (Unverified 03/22/17 12:04) NEW PRESCRIPTIONS: Xanax 0.25 mg at bedtime (Prescription sent) Milk of Magnesia 30 ml daily Albuterol Nebs 0.83% BID Cozaar 25 mg daily Anusol HC Suppository BID for 7 days SMOKING: Not Applicable DISEASE SPECIFIC EDUCATION: Patient Confused, Not Applicable LAB REVIEW: 03/27/17 04:50 03/27/17 04:50 03/27/17 04:50: Sodium 138, Potassium 4.2, Chloride 99, Carbon Dioxide 31, Anion Gap 12.2, BUN 23 H, Creatinine 0.76, Estimated GFR (MDRD) 73.00, BUN/ Creatinine Ratio 30.26, Glucose 89, Calcium 9.0, Total Bilirubin 0.9, AST 42 H, ALT 30, Alkaline Phosphatase 69, Total Protein 5.9, Albumin 3.1 L, Globulin 2.8 , Albumin/Globulin Ratio 1.11 03/27/17 04:50: WBC 6.77, RBC 4.87, Hgb 12.3, Hct 39.9, MCV 81.9, MCH 25.3 L, MCHC 30.8 L, RDW Coeff of Rmairo 22.1 H, Plt Count 165, Neutrophils % (Manual) 71.0 , Lymphocytes % (Manual) 23.0, Monocytes % (Manual) 5.0, Basophils % (Manual) 1.0, Anisocytosis Not present PLAN: Discharge to [facility] Diet: Regular diet as tolerated Dietitian to see for optimal nutritional intake Activity: Up to dining room for meals Assist to Bathroom prn Physical and Occupational Therapy Evaluation Nasal Oxygen at 2 liters per nasal cannula Albuterol Nebs 0.83% BID Vital Signs daily for one week, then weekly Oximetry daily for one week CBC, CMP in one week, then every 2 months Lipids every 6 months Weigh weekly Incontinent care prn Patient to be seen on halfway rounds in 7-10 days by Shellie Garza APRN/ Dr. Henderson Mrs. Posada is alert to person. She is disoriented to time, place and situation. She is quiet and cooperative with care, but often attempts to get up without assistance. She requires assistance of 1 staff member for transfers and ambulation. She is noted to be slow and unsteady with ambulation. She is continent of urine and bowel. She requires assistance with personal care, but feeds herself independently. Meal intakes are good at 25-75%. Last BM noted yesterday; 3 stools reported. Her color is pale, skin is intact with areas of fading ecchymosis noted to the upper extremities. Hayden Henderson MD Shellie Garza APRN
--- NOTE | 2017-03-27 12:50 | ECHO2D ---
Date of Exam: 03/24/17 Ordering Physician: DR. SHAE DANIELLE Room #: 103 Reason for Echo: EVALUATE LV FUNCTION/VALVES, ATRIAL FIBRILLATION, CHF M-Mode Normal Adult Results LV Dimensions Normal Adult Results AoV Opening excursions >1.6 >1.6 LVEDD-base- 3.5-5.8 4.2 Ao root dimensions 2.0-3.7 3.5 LVESD-base- 3.1-4.6 L. Atrium dimensions 1.9-3.8 5.4 Post. Wall thickness 0.8-1.1 1.1 IV septum (thickness) 0.7-1.2 1.3 Post. Wall excursion 0.72-1.3 NORMAL Septal motion NORMAL Systolic motion R. Ventricular cavity 1.5-2.0 3.0 LVEF 60% 62% Paradoxical septal wall motion NORMAL 2-D : ENLARGED LEFT ATRIAL CAVITY / RIGHT VENTRICLE CAVITY/ NORMAL LEFT VENTRICULAR CONTRACTILITY/ NORMAL VALVES-- NO EFFUSION, NO THROMBUS, NORMAL LEFT VENTRICLE SIZE COLOR FLOW: MODERATE TO SEVERE MITRAL REGURGITATION, TRICUSPID REGURGITATION M-MODE: MV: NORMAL AV: NORMAL TV: NORMAL PV: CHAMBER SIZE: ENLARGED LEFT ATRIAL AND RIGHT VENTRICLE SIZE WALL MOTION: NORMAL PERICARDIUM: NORMAL INTERPRETATION: 1. LEFT VENTRICULAR HYPERTROPHY WITH ENLARGED LEFT ATRIAL CAVITY 2. ENLARGED RIGHT VENTRICLE CAVITY 3. NORMAL LEFT VENTRICULAR CONTRACTILITY MTDD
--- NOTE | 2017-03-29 11:50 | PN ---
DATE OF SERVICE: 03/22/17 - ADMITTING NOTE SUBJECTIVE: 81-year-old white female was seen in the emergency room. The patient was brought to the emergency room by family. The patient's condition has deteriorated even worse than what it was when she was hospitalized at [facility]. She was kept in observation for 2 to 3 days and discharged; that didn't qualify the patient for fdc placement but according to the son, condition of his mother is worse than what it was when she was admitted to [facility]. The patient complained of shortness of breath. The patient has dementia. She is alert, unable to answer any questions in a clear-cut way. The patient has history of atrial fib, hypertension, dementia, congestive heart failure, chronic lung disease, generalized osteoarthritis. FAMILY/SOCIAL HISTORY: The patient is , lives with the , needs help to carry out most of the activity of daily living. Nonsmoker. No alcohol abuse. PHYSICAL EXAMINATION: GENERAL: The patient is confused but alert. VITAL SIGNS: Temperature 98, pulse 110 irregular. Respiratory rate 20, BP 120/ 70. HEENT: Head normocephalic, atraumatic. Looks somewhat pale. Eyes: Extraocular muscles are intact. Pupils are equal, round and reactive to light and accommodation. Ears: No lesions. Nose appeared normal. Throat: No exudate or erythema. NECK: Supple. No JVD, no carotid bruit. No lymphadenopathy or thyromegaly. LUNGS: Few crepitations at the bases with decreased breath sounds. Percussion note normal. Chest symmetrical. HEART: S1, S2, irregularly irregular. No murmurs. No cyanosis or clubbing. No ascites. Pulses: Dorsalis pedis and posterior tibial pulses +1 both sides. ABDOMEN: Soft. Nontender. Bowel sounds active. No CVA tenderness. No mass felt. EXTREMITIES: Trace pitting edema. Full range of motion of all extremities, equal. NEUROLOGIC: No focal deficit. Cranial nerves II through XII are grossly intact. No headache, no double vision or headache. SKIN: Not dry. Intact. Turgor - normal. LYMPHATIC: No palpable lymph nodes/no lymphedema. MUSCULOSKELETAL: Normal joints with no swelling. Muscle tone is normal. LABS: EKG shows atrial fib, right axis. Rate 110 to 120 per minute. Chest x-ray - cardiomegaly. ABG - p02 52, pc02 38, pH 7.5, 90% saturation on room air. Creatinine/BUN acceptable. Potassium normal. ASSESSMENT: 1. CHF WITH ELEVATED BNP 2. ATRIAL FIB WITH RAPID VENTRICULAR RESPONSE 3. CHRONIC LUNG DISEASE 4. DEMENTIA 5. HYPERTENSION PLAN: 1. IV Lasix 20 mg - the patient had not taken her Lasix dose today. 2. Continue Xarelto. 3. Will give 1 cc Decadron now, 1 cc Decadron in the morning. 4. Will start nebs treatment tomorrow. 5. Xanax 0.25 at night. 6. Continue Namenda, Aricept. CONDITION: Stable TIME SPENT: More than 30 minutes. Plan and coordination of the patient's care discussed in the presence of nurse. FREDRICK
--- NOTE | 2017-03-29 12:45 | PN ---
DATE OF SERVICE: 03/27/17 SUBJECTIVE: 81 year old white female hospitalized with CHF, atrial fibrillation. The patient 's condition has improved. She is looking much better and alert to person. She recognized her son. The patient is to go to the intermediate. REVIEW OF SYSTEMS: CONSTITUTIONAL: No night sweats. No fatigue, malaise, lethargy. No fever or chills. HEENT: Eyes: No visual changes. No eye pain. No eye discharge. ENT: No runny nose. No epistaxis. No sinus pain. No sore throat. No odynophagia. No congestion. RESPIRATORY: No cough, no congestion. No hemoptysis. No shortness of breath. CARDIOVASCULAR: No angina symptoms. No CHF symptoms. No atypical chest pain for CAD. No palpitations. No orthopnea. GASTROINTESTINAL: No abdominal pain. No nausea or vomiting. No diarrhea or constipation. No hematemesis. No hematochezia. GENITOURINARY: No urgency. No frequency. No dysuria. No hematuria. No obstructive symptoms. No discharge. No pain. No significant abnormal bleeding. MUSCULOSKELETAL: No musculoskeletal pain; no joint swelling. NEUROLOGICAL: No headache. No neck pain. No syncope. No seizures. No dizziness. PSYCHIATRIC: Not anxious. No depression. No suicidal thoughts. No homicidal thoughts. SKIN: No rash. No lesions. No wounds. ENDOCRINE: No unexplained weight loss. No weight gain. HEMATOLOGIC/LYMPHATIC: No anemia. No purpura. No petechiae. No prolonged or excessive bleeding. No palpable lymph nodes. PHYSICAL EXAMINATION: HEENT: Head normocephalic, atraumatic. Eyes: Extraocular muscles are intact. Pupils are equal, round and reactive to light and accommodation. Ears: No lesions. Nose appeared normal. Throat: No exudate or erythema. NECK: Supple. No JVD, no carotid bruit. No lymphadenopathy or thyromegaly. LUNGS: Clear to auscultation. Percussion note normal. Chest symmetrical. HEART: S1, S2, no S3. No murmurs. No cyanosis or clubbing. No ascites. Pulses: Dorsalis pedis and posterior tibial pulses +1 to +2 both sides. ABDOMEN: Soft. Nontender. Bowel sounds active. No CVA tenderness. No mass felt. EXTREMITIES: No edema. Full range of motion of all extremities, equal. NEUROLOGIC: No focal deficit. Cranial nerves II through XII are grossly intact. No headache, no double vision or headache. SKIN: Not dry. Intact. Turgor - normal. LYMPHATIC: No palpable lymph nodes/no lymphedema. MUSCULOSKELETAL: Normal joints with no swelling. Muscle tone is normal. ASSESSMENT: 1. CHF seems to have improved 2. Atrial fibrillation with normal ventricular response 3. Hypertension, controlled 4. Dementia controlled. PLAN: 1. Discharge to the intermediate [place] 2. The patient had hemorrhoidal bleed we will give Anusol HC twice a day for 7 days 3. Cozaar to be added because of patient's CHF as unloading agent. TIME SPENT: More than 30 minutes. Plan and coordination of the patient's care discussed in the presence of nurse. FREDRICK
--- NOTE | 2017-03-29 13:16 | DS ---
DATE OF SERVICE: 03/27/17 FINAL DIAGNOSIS: 1. Atrial fibrillation with RVR 2. Congestive heart failure 3. COPD with chronic bronchitis 4. Hypertension 5. Dementia 6. Anemia 7. Generalized osteoarthritis 8. Dyslipidemia 9. TKR, Left 10.Hemorrhoids LAST VITALS: Temperature 97.8, pulse 117, respiratory rate 20, blood pressure 145/95 and pulse ox 98%. DISCHARGE INSTRUCTIONS: Discharge to [facility]. Physical and Occupational Therapy Evaluation. Nasal Oxygen at 2 liters per nasal cannula. Albuterol NEBS 0.83% twice a day. Vital signs daily for one week, then weekly. Oximetry daily for one week. CBC, CMP in one week, then every 2 months. Lipids every 6 months. Weigh weekly. MEDICATIONS AT DISCHARGE: Tylenol 500mg PO Q 6 hours PRN Calcium 500+Vitamin D 200mg one each PO twice a day Lasix 40mg PO QDAC Neurontin 300mg PO bedtime Lopressor 50mg PO twice a day Nitrostat 0.4mg SL Q 5 minutes x3 doses PRN Cyclosporine one each OP twice a day Brimonidine Tartrate one drop OP twice a day K-Dur 20 meq PO daily Pravachol 40mg PO bedtime Xarelto 20mg PO bedtime ALLERGIES: No known allergies NEW PRESCRIPTIONS: Xanax 0.25mg at bedtime (prescription sent) Milk of magnesia 30ml daily Albuterol NEBS 0.83% twice a day Cozaar 25mg daily Anusol HC suppository twice a day for 7 days DIET INSTRUCTIONS: Regular diet as tolerated. [employer] to see for optimal nutritional intake ACTIVITY: Up to dining room for meals. Assist to Bathroom PRN. SMOKING: N/A DISEASE SPECIFIC EDUCATION: Patient confused, not application HOSPITAL COURSE: 81 year old white female hospitalized through the emergency room with CHF, Atrial fibrillation and rapid ventricular response. The patient was being treated with IV Lasix. The patient was given IV Lanoxin to control her rate. Her respiratory status improved with steroids and antibiotics. Condition improved. The patient's dementia has persisted. Family had decided to put her in the senior living. The patient was discharged in stable condition. The patient is functional to some extent but requires help for all activity of daily living. She has chronic lung disease besides atrial fibrillation. Echo showed normal LV contractility, enlarged RV cavity and enlarged LA size. CONDITION: Stable TIME SPENT: More than 60 minutes. MTDD
--- NOTE | 2017-03-29 13:18 | PN ---
03/22/17: Level 5 03/23/17: Intermediate 03/24/17: Intermediate 03/25/17: Intermediate 03/26/17: Intermediate 03/27/17: D as in discharge. MTDD
== END 2017-03-27 13:30 | DRG 292 ==
LOC: ED 11:49 → MEDSURG A 17:20
PROVIDERS: ADMIT Internal Medicine; ATTEND Internal Medicine
DX: I50.9 Heart failure, unspecified (principal); K62.5 Hemorrhage of anus and rectum; F05 Delirium due to known physiological condition; I48.0 Paroxysmal atrial fibrillation; R06.02 Shortness of breath; R00.2 Palpitations; I51.7 Cardiomegaly; K64.9 Unspecified hemorrhoids; D64.9 Anemia, unspecified; J44.9 Chronic obstructive pulmonary disease, unspecified; I10 Essential (primary) hypertension; F03.90 Unspecified dementia, unspecified severity, without behavioral disturbance, psychotic disturbance, mood disturbance, and anxiety; E78.5 Hyperlipidemia, unspecified; M15.9 Polyosteoarthritis, unspecified; Z96.652 Presence of left artificial knee joint; Z79.01 Long term (current) use of anticoagulants; Z79.899 Other long term (current) drug therapy
CPT/HCPCS: 36415; 80053; 81001; 82550; 82803; 83605; 83880; 84145; 84443; 84484; 85007; 85025; 86850; 86900; 87040; 87081; 93005; 93010; 94640; 96372; 96374; 96375; 97802; 99284

== ENCOUNTER 2017-03-28 20:19 | Outpatient (CLI) | END 2017-03-28 20:20 | disposition short-term general hospital (02) | LOC: AMBL 20:19 | PROVIDERS: ATTEND Family Medicine | DX: R06.02 Shortness of breath (principal); R53.1 Weakness; R05 Cough; I48.91 Unspecified atrial fibrillation; R09.02 Hypoxemia; R07.1 Chest pain on breathing ==

== ENCOUNTER 2017-04-10 15:07 | Outpatient (CLI) | payer OTHER | END 2017-04-10 15:08 | disposition home or self-care (01) | LOC: LAB 15:07 | PROVIDERS: ATTEND Internal Medicine | DX: R41.0 Disorientation, unspecified (principal); R30.0 Dysuria ==

== ENCOUNTER 2017-04-12 09:39 | Outpatient (CLI) | END 2017-04-12 09:40 | disposition home or self-care (01) | LOC: NONPT 09:39 | PROVIDERS: ATTEND Internal Medicine | DX: R41.0 Disorientation, unspecified (principal); R30.0 Dysuria | CPT/HCPCS: 81001; 87086 ==